=== PATIENT | female | born 1995 | race Caucasian/White ===

== ENCOUNTER → 2017-06-27 | Outpatient (CLI) | payer OTHER ==
--- NOTE | 2017-06-27 14:30 | DIAGNOSTIC IMAGING REPORT ---
PELVIC COMPLETE NON OB CLINICAL HISTORY: PELVIC PAIN- MIDLINE SUPRAPUBIC PAIN COMPARISON STUDY: None FINDINGS: The uterus measured 6.2 cm. The endometrial stripe measured 6 mm. The right ovary measured 2.8 cm maximum dimension with a 1.4 cm dominant follicle. Normal vascular flow. The left ovary measured maximum dimension 3.8 cm with several small subcentimeter follicular cyst. Normal vascular flow. There is no ultrasonographic evidence of ovarian torsion. It should be noted that ovarian torsion can be present with normal Doppler ultrasonographic findings. There was no evidence of pathologic free pelvic fluid. IMPRESSION: 1. Small bilateral ovarian follicular cyst. 2. Dominant follicle of the right ovary measuring 1.4 cm. 3. All remaining components of the study are normal. Normal vascular flow to both ovaries. The above report was generated using voice recognition software. It may contain grammatical, syntax or spelling errors. Electronically signed by: Temo Archer M.D. 06/27/2017 2:28 PM Dictated Date/Time: 06/27/2017 2:25 PM
== END | disposition home or self-care (01) ==
LOC: C.ULTR 13:32
PROVIDERS: ATTEND Physician Assistant Medical
DX: R10.2 Pelvic and perineal pain (principal)